=== PATIENT | male | born 1970 | race Caucasian/White ===

== ENCOUNTER → 2021-08-16 08:03 | Outpatient (CLI) | payer OTHER, SELFPAY ==
[2021-08-16 19:46] LABS: Add Manual Diff / Slide Review NO; Basophils Absolute Auto 100 /uL (0-100); Basophils Percent Auto 1.1 % (0-2); Eosinophils Absolute Auto 200 /uL (0-450); Eosinophils Percent Auto 3.4 % (2-4); Hematocrit 46.7 % (41-53); Hemoglobin 16.2 g/dL (13.5-17.5); Lymphocytes Absolute Auto 2000 /uL (1100-4500); Lymphocytes Percent Auto 28.6 % (25-40); Mean Corpuscular HGB Conc 34.7 % (30-36); Mean Corpuscular Hemoglobin 32.5 PG (26-34); Mean Corpuscular Volume 93.7 fL (80-100); Monocytes Absolute Auto 900 /uL (0-900); Monocytes Percent Auto 12.5 % (3-14); Neutrophils Absolute Auto 3800 /uL (1500-7000); Neutrophils Percent Auto 54.4 % (50-75); Platelet Count 299 X10^3/uL (150-400); Red Blood Cell Count 4.98 X10^6/uL (4.5-5.9); Red Cell Distribution Width 12.8 % (11.6-14.8); White Blood Cell Count 7.1 X10^3/uL (4.5-11.0)
[2021-08-16 19:50] LABS: Alanine Aminotransferase 93 IU/L (<50); Albumin 4.3 g/dL (3.5-5.0); Albumin Globulin Ratio 1.5 (1.0-2.8); Alkaline Phosphatase 46 U/L (38-126); Aspartate Aminotransferase 51 IU/L (17-59); BUN Creatinine Ratio 13.3 (6-22); Bilirubin Total 0.7 mg/dL (0.2-1.3); Blood Urea Nitrogen 14 mg/dL (9-20); Calcium 9.7 mg/dL (8.4-10.2); Carbon Dioxide 30 mmol/L (22-32); Chloride 101 mmol/L (98-107); Cholesterol 145 mg/dL (140-199); Estimated Glomerular Filt Rate > 60.0 mL/min (>60); Globulin 2.9 g/dL (1.7-4.1); Glucose 120 mg/dL (70-100); HDL Cholesterol 34 mg/dL (40-60); HEMOLYSIS < 15 (0-50); LDL Cholesterol Calculated 86 mg/dL (<100); Sodium 139 mmol/L (137-145); Total Protein 7.2 g/dL (6.3-8.2); Triglycerides 126 mg/dL (35-150)
== END ==
PROVIDERS: PCP Family Medicine; Referring Provider Family Medicine; Visit Provider Family Medicine
DX: I10 Essential (primary) hypertension (principal); E78.5 Hyperlipidemia, unspecified
CPT/HCPCS: 80053; 80061; 85025

== ENCOUNTER → 2021-08-21 09:48 | Outpatient (CLI) | payer OTHER, SELFPAY ==
[2021-08-22 15:20] LABS: COVID19 - ORCAS (NP or Nasal) Negative (Negative)
== END ==
PROVIDERS: PCP Family Medicine; Referring Provider Family Medicine; Visit Provider Family Medicine
DX: Z20.822 Contact with and (suspected) exposure to COVID-19 (principal)
CPT/HCPCS: U0003

== ENCOUNTER → 2021-09-05 10:37 | Outpatient (CLI) | payer OTHER, SELFPAY ==
[2021-09-05 19:27] LABS: Hemoglobin A1C% w Est Avg Glu 5.6 % (4.0-6.0)
== END ==
PROVIDERS: PCP Family Medicine; Visit Provider Family Medicine
DX: R73.01 Impaired fasting glucose (principal)
CPT/HCPCS: 83036

== ENCOUNTER → 2022-08-21 09:19 | Outpatient (CLI) | payer OTHER, SELFPAY ==
[2022-08-21 19:28] LABS: Add Manual Diff / Slide Review NO; Basophils Absolute Auto 0 /uL (0-100); Basophils Percent Auto 0.7 % (0-2); Eosinophils Absolute Auto 100 /uL (0-450); Eosinophils Percent Auto 1.9 % (2-4); Hematocrit 42.1 % (41-53); Hemoglobin 15.1 g/dL (13.5-17.5); Lymphocytes Absolute Auto 1100 /uL (1100-4500); Lymphocytes Percent Auto 36.4 % (25-40); Mean Corpuscular HGB Conc 35.9 % (30-36); Mean Corpuscular Hemoglobin 34.4 PG (26-34); Mean Corpuscular Volume 95.9 fL (80-100); Monocytes Absolute Auto 300 /uL (0-900); Monocytes Percent Auto 11.5 % (3-14); Neutrophils Absolute Auto 1500 /uL (1500-7000); Neutrophils Percent Auto 49.5 % (50-75); Platelet Count 170 X10^3/uL (150-400); Red Blood Cell Count 4.39 X10^6/uL (4.5-5.9); Red Cell Distribution Width 14.5 % (11.6-14.8)
[2022-08-21 19:29] LABS: Alanine Aminotransferase 119 IU/L (<50); Albumin 4.2 g/dL (3.5-5.0); Albumin Globulin Ratio 1.5 (1.0-2.8); Alkaline Phosphatase 51 U/L (38-126); Aspartate Aminotransferase 53 IU/L (17-59); BUN Creatinine Ratio 14.8 (6-22); Bilirubin Total 0.8 mg/dL (0.2-1.3); Blood Urea Nitrogen 13 mg/dL (9-20); Calcium 8.8 mg/dL (8.4-10.2); Carbon Dioxide 26 mmol/L (22-32); Chloride 102 mmol/L (98-107); Cholesterol 134 mg/dL (140-199); Estimated Glomerular Filt Rate > 60 mL/min (>60); Globulin 2.8 g/dL (1.7-4.1); Glucose 159 mg/dL (70-100); HDL Cholesterol 43 mg/dL (40-60); HEMOLYSIS < 15 (0-50); LDL Cholesterol Calculated 74 mg/dL (<100); Potassium 4.6 mmol/L (3.4-5.1); Sodium 137 mmol/L (137-145); Triglycerides 86 mg/dL (35-150)
== END ==
PROVIDERS: PCP Family Medicine; Visit Provider Family Medicine
DX: E78.5 Hyperlipidemia, unspecified (principal); I10 Essential (primary) hypertension; K21.9 Gastro-esophageal reflux disease without esophagitis; R73.01 Impaired fasting glucose; R74.8 Abnormal levels of other serum enzymes
CPT/HCPCS: 80053; 80061; 85025

== ENCOUNTER → 2023-02-24 13:04 | Outpatient (CLI) | payer OTHER, SELFPAY ==
[2023-02-24 19:21] LABS: Alanine Aminotransferase 109 IU/L (<50); Albumin 4.3 g/dL (3.5-5.0); Albumin Globulin Ratio 1.7 (1.0-2.8); Alkaline Phosphatase 51 U/L (38-126); Aspartate Aminotransferase 54 IU/L (17-59); Bilirubin Total 0.9 mg/dL (0.2-1.3); Bilirubin Unconjugated 0.7 mg/dL (0.0-1.1); Globulin 2.5 g/dL (1.7-4.1); HEMOLYSIS < 15 (0-50); Total Protein 6.8 g/dL (6.3-8.2)
[2023-02-24 20:07] LABS: Basophils Absolute Auto 0 /uL (0-100); Eosinophils Absolute Auto 0 /uL (0-450); Eosinophils Percent Auto 0.7 % (2-4); Hematocrit 31.5 % (41-53); Hemoglobin 11.4 g/dL (13.5-17.5); Lymphocytes Absolute Auto 2200 /uL (1100-4500); Lymphocytes Percent Auto 51.2 % (25-40); Mean Corpuscular Hemoglobin 39.7 PG (26-34); Mean Corpuscular Volume 109.3 fL (80-100); Monocytes Absolute Auto 300 /uL (0-900); Monocytes Percent Auto 8.1 % (3-14); Neutrophils Absolute Auto 1700 /uL (1500-7000); Red Blood Cell Count 2.88 X10^6/uL (4.5-5.9); Red Cell Distribution Width 15.9 % (11.6-14.8); White Blood Cell Count 4.3 X10^3/uL (4.5-11.0)
[2023-02-24 20:08] LABS: Add Manual Diff / Slide Review SLIDE REVIEW; Mean Corpuscular HGB Conc 36.3 % (30-36); Platelet Count 37 X10^3/uL (150-400)
[2023-02-24 20:09] LABS: Macrocytosis 1+; Platelet Estimate Decreased on smear; Polychromasia 1+
[2023-02-25 22:22] LABS: Labcorp Hemoglobin (Hb) A1c 7.4 % (4.8-5.6)
== END ==
PROVIDERS: Family Medicine; PCP Physician Assistant; Visit Provider Physician Assistant
DX: R79.89 Other specified abnormal findings of blood chemistry (principal); I10 Essential (primary) hypertension; R73.01 Impaired fasting glucose; R74.8 Abnormal levels of other serum enzymes
CPT/HCPCS: 80076; 83036; 85025

== ENCOUNTER → 2023-03-17 09:34 | Outpatient (CLI) | payer OTHER, SELFPAY ==
[2023-03-19 13:39] LABS: Fecal Immunochemical Test Negative (Negative)
== END ==
PROVIDERS: PCP Physician Assistant; Visit Provider Family Medicine
DX: Z12.11 Encounter for screening for malignant neoplasm of colon (principal)
CPT/HCPCS: 82274

== ENCOUNTER → 2023-03-19 11:04 | Outpatient (CLI) | payer OTHER, SELFPAY ==
[2023-03-19 19:53] LABS: HEMOLYSIS < 15 (0-50); Iron 264 ug/dL (49-181)
[2023-03-19 20:03] LABS: Alanine Aminotransferase 143 IU/L (<50); Albumin 4.2 g/dL (3.5-5.0); Albumin Globulin Ratio 1.5 (1.0-2.8); Alkaline Phosphatase 52 U/L (38-126); Aspartate Aminotransferase 86 IU/L (17-59); BUN Creatinine Ratio 17.2 (6-22); Bilirubin Total 0.9 mg/dL (0.2-1.3); Blood Urea Nitrogen 15 mg/dL (9-20); Calcium 8.7 mg/dL (8.4-10.2); Carbon Dioxide 26 mmol/L (22-32); Chloride 101 mmol/L (98-107); Cholesterol 132 mg/dL (140-199); Estimated Glomerular Filt Rate > 60 mL/min (>60); Globulin 2.8 g/dL (1.7-4.1); Glucose 257 mg/dL (70-100); HDL Cholesterol 32 mg/dL (40-60); HEMOLYSIS < 15 (0-50); LDL Cholesterol Calculated 67 mg/dL (<100); Potassium 4.6 mmol/L (3.4-5.1); Sodium 134 mmol/L (137-145); Triglycerides 164 mg/dL (35-150)
[2023-03-19 20:04] LABS: Total Iron Binding Capacity 328 ug/dL (261-462); Transferrin 220 mg/dL (206-381)
[2023-03-19 20:08] LABS: Percent Iron Saturation 80 % (20-50)
[2023-03-19 20:13] LABS: Vitamin D 25 Hydroxy (D3) 65.1 ng/mL (30.0-100.0)
[2023-03-19 20:21] LABS: Creatinine Urine Random 20.7 mg/dL
[2023-03-19 20:26] LABS: TSH w/ Reflex to FT4 1.17 uIU/mL (0.47-4.68)
[2023-03-19 20:34] LABS: Microalbumin Urine Random < 0.6 mg/dL (0-1.6)
[2023-03-19 20:59] LABS: Hematocrit 27.2 % (41-53); Hemoglobin 9.8 g/dL (13.5-17.5); Mean Corpuscular HGB Conc 35.9 % (30-36); Mean Corpuscular Hemoglobin 39.8 PG (26-34); Mean Corpuscular Volume 110.9 fL (80-100); Red Blood Cell Count 2.45 X10^6/uL (4.5-5.9); Red Cell Distribution Width 17.2 % (11.6-14.8); White Blood Cell Count 2.6 X10^3/uL (4.5-11.0)
[2023-03-19 21:08] LABS: Platelet Count 23 X10^3/uL (150-400)
[2023-03-19 21:09] LABS: Add Manual Diff / Slide Review YES
[2023-03-19 21:13] LABS: Neutrophils Absolute Manual 858 /uL (3000-5900); Total Cells Counted 100
[2023-03-19 21:15] LABS: Anisocytosis 2+; Macrocytosis 2+; Ovalocytes 1+; Poikilocytosis 2+
[2023-03-19 21:16] LABS: Tear Drop Cells 1+
[2023-03-19 21:17] LABS: Toxic Granulation Present
[2023-03-19 21:18] LABS: Smudge Cells 1+
== END ==
PROVIDERS: PCP Physician Assistant; Visit Provider Family Medicine
DX: D61.818 Other pancytopenia (principal); D64.9 Anemia, unspecified; E11.65 Type 2 diabetes mellitus with hyperglycemia; I10 Essential (primary) hypertension; E78.5 Hyperlipidemia, unspecified; R74.8 Abnormal levels of other serum enzymes; R79.89 Other specified abnormal findings of blood chemistry
CPT/HCPCS: 80053; 80061; 82043; 82306; 82570; 83540; 83550; 84443; 85007; 85025

== ENCOUNTER → 2023-03-20 09:44 | Outpatient (CLI) | payer OTHER, SELFPAY ==
[2023-03-20 10:55] LABS: Appearance Urine UA CLEAR; Bilirubin Urine UA NEGATIVE (NEGATIVE); Color Urine UA YELLOW; Glucose Urine UA 2+ g/dL (Negative); Ketones Urine UA NEGATIVE (NEGATIVE); Leukocyte Esterase Urine UA NEGATIVE (NEGATIVE); Nitrite Urine UA NEGATIVE (Negative); Occult Blood Urine UA NEGATIVE (Negative); Protein Urine UA NEGATIVE (Negative); Specific Gravity Urine UA <=1.005 (1.000-1.035); Urobilinogen Urine UA 0.2 E.U./dL (0.2); pH Urine UA 6.5 (4.5-8.0)
[2023-03-20 10:57] LABS: Bacteria Urine None Seen; Culture Indicated Urine Cult Not Indicated; RBC Urine None Seen (0-5/HPF); Squamous Epithelial Cell Urine None Seen (0-5/HPF); Urine Comments Microscopic Normal; WBC Urine None Seen (0-5/HPF)
[2023-03-20 20:00] LABS: Alanine Aminotransferase 135 IU/L (<50); Albumin 4.2 g/dL (3.5-5.0); Albumin Globulin Ratio 1.6 (1.0-2.8); Alkaline Phosphatase 47 U/L (38-126); Aspartate Aminotransferase 66 IU/L (17-59); Bilirubin Total 0.9 mg/dL (0.2-1.3); Bilirubin Unconjugated 0.8 mg/dL (0.0-1.1); C-Reactive Protein Quant < 0.5 mg/dL (<1.0); Globulin 2.6 g/dL (1.7-4.1); HEMOLYSIS < 15 (0-50); Total Protein 6.8 g/dL (6.3-8.2)
[2023-03-20 20:17] LABS: Hematocrit 27.1 % (41-53); Hemoglobin 9.7 g/dL (13.5-17.5); Mean Corpuscular Hemoglobin 39.7 PG (26-34); Mean Corpuscular Volume 110.3 fL (80-100); Red Blood Cell Count 2.46 X10^6/uL (4.5-5.9); Red Cell Distribution Width 17.1 % (11.6-14.8); White Blood Cell Count 2.1 X10^3/uL (4.5-11.0)
[2023-03-20 20:19] LABS: Erythrocyte Sedimentation Rate 37 MM/HR (0-15)
[2023-03-20 20:39] LABS: Platelet Count 22 X10^3/uL (150-400)
[2023-03-20 20:49] LABS: Vitamin B12 > 1000 pg/mL (239-931)
[2023-03-20 21:01] LABS: HIV 1 & 2 Ab/Ag 4th Gen Combo NEGATIVE (NEGATIVE); Hepatitis B Surface Antigen NEGATIVE s/c (NEGATIVE)
[2023-03-20 21:03] LABS: Anisocytosis 1+; Neutrophils Absolute Manual 798 /uL (3000-5900); Total Cells Counted 100
[2023-03-20 21:04] LABS: Hypochromasia 1+; Microcytosis 2+
[2023-03-25 13:18] LABS: Albumin 3.6 g/dL (2.9-4.4); Alpha-1-Globulin 0.2 g/dL (0.0-0.4); Alpha-2-Globulin 0.6 g/dL (0.4-1.0); Gamma Globulin 0.9 g/dL (0.4-1.8); Globulin Total 2.9 g/dL (2.2-3.9); Protein, Total 6.5 g/dL (6.0-8.5)
[2023-03-25 18:41] LABS: Methylmalonic Acid,Serum 113 nmol/L (0-378)
[2023-03-26 17:07] LABS: ANA Screen, IFA Negative (.)
== END ==
PROVIDERS: PCP Family Medicine; Visit Provider Family Medicine
DX: D61.818 Other pancytopenia (principal); E11.65 Type 2 diabetes mellitus with hyperglycemia; R79.89 Other specified abnormal findings of blood chemistry
CPT/HCPCS: 80076; 81001; 82607; 83921; 84155; 84165; 85025; 85651; 86038; 86140; 87340; 87389

== ENCOUNTER → 2023-03-31 09:26 | Outpatient (CLI) | payer OTHER, SELFPAY ==
[2023-03-31 19:23] LABS: Reticulocyte Count, Percent 2.9 % (0.9-2.6)
[2023-03-31 19:35] LABS: Add Manual Diff / Slide Review NO; Basophils Absolute Auto 0 /uL (0-100); Basophils Percent Auto 0.5 % (0-2); Eosinophils Absolute Auto 0 /uL (0-450); Eosinophils Percent Auto 0.4 % (2-4); Hematocrit 22.5 % (41-53); Hemoglobin 8.2 g/dL (13.5-17.5); Lymphocytes Absolute Auto 2100 /uL (1100-4500); Mean Corpuscular HGB Conc 36.5 % (30-36); Mean Corpuscular Hemoglobin 41.3 PG (26-34); Mean Corpuscular Volume 113.2 fL (80-100); Monocytes Absolute Auto 400 /uL (0-900); Monocytes Percent Auto 11.8 % (3-14); Neutrophils Absolute Auto 1100 /uL (1500-7000); Neutrophils Percent Auto 30.3 % (50-75); Red Blood Cell Count 1.99 X10^6/uL (4.5-5.9); Red Cell Distribution Width 17.2 % (11.6-14.8); White Blood Cell Count 3.7 X10^3/uL (4.5-11.0)
[2023-03-31 21:18] LABS: Platelet Count 16 X10^3/uL (150-400)
[2023-03-31 21:20] LABS: Platelet Estimate Decreased on smear
== END ==
PROVIDERS: PCP Family Medicine; Visit Provider Family Medicine
DX: D61.818 Other pancytopenia (principal); D69.3 Immune thrombocytopenic purpura
CPT/HCPCS: 85025; 85045

== ENCOUNTER → 2023-05-26 10:23 | Outpatient (CLI) | payer OTHER, SELFPAY ==
[2023-05-26 20:13] LABS: Mean Corpuscular HGB Conc 35.8 % (30-36); Mean Corpuscular Hemoglobin 32.4 PG (26-34); Mean Corpuscular Volume 90.4 fL (80-100); Platelet Count 46 X10^3/uL (150-400); Red Blood Cell Count 2.06 X10^6/uL (4.5-5.9); Red Cell Distribution Width 17.9 % (11.6-14.8)
[2023-05-26 20:37] LABS: Hemoglobin 6.6 g/dL (13.5-17.5); White Blood Cell Count 1.7 X10^3/uL (4.5-11.0)
[2023-05-26 20:38] LABS: Add Manual Diff / Slide Review YES; Hematocrit 18.6 % (41-53)
[2023-05-26 21:04] LABS: Anisocytosis 2+; Neutrophils Absolute Manual 153 /uL (3000-5900); Total Cells Counted 100
[2023-05-26 21:05] LABS: Hypochromasia 1+; Rouleaux 1+
== END ==
PROVIDERS: PCP Family Medicine; Visit Provider Internal Medicine Hematology & Oncology
DX: D61.818 Other pancytopenia (principal)
CPT/HCPCS: 85007; 85025